=== PATIENT | female | born 1980 | race Caucasian/White ===

== ENCOUNTER 2017-03-17 20:10 | Emergency (ER) | payer BC, OTHER ==
[~2017-03-17] VITALS: Ht 147.3 cm; Wt 77.1 kg
[~2017-03-17 20:10] MED LIST: ALAVERT10 MG PO; ANUSOL-HC30 GM; CLARITIN10 MG PO; IBUPROFEN 600600 M1; NOHOMEMEDICATIONS; NORCO 5-325 TA1 EACH; PREDNISOLONE 5 M5 M1 PO; PREDNISONE 20 M20 M1 PO; PREDNISONE 20 M20 MG PO; PRENATAL PO; ULTRAM 50MG TAB50 MG PO; ZANTAC 150MG T150 M1 PO; ZANTAC 150MG T150 MG PO; ZPAK PO; ZYRTEC10 M2 PO
[2017-03-17 20:17] VITALS: BP 113/87
[2017-03-17] MEDS ORDERED: HYDROXYZINE HCL10 M2 PO (20:56)
== END 2017-03-17 21:04 | disposition home or self-care (01) ==
LOC: ER 20:10
DX: L29.9 Pruritus, unspecified (principal); Z88.6 Allergy status to analgesic agent; Z88.0 Allergy status to penicillin

== ENCOUNTER 2018-05-26 20:30 | Emergency (ER) | payer BC, OTHER ==
[~2018-05-26] VITALS: Ht 142.2 cm; Wt 77.1 kg
[~2018-05-26 20:30] MED LIST changes: +HYDROXYZINE HCL10 M2 PO
[2018-05-26] MEDS ORDERED: VENTOLIN HFA 1818 GM INH ×2 (21:46→21:59)
[2018-05-26] MEDS ORDERED: PREDNISONE 20 M20 MG PO (21:46)
[2018-05-26] MEDS ORDERED: PROMETH-CODEIN 65 ML PO (21:58)
[2018-05-26 22:05] VITALS: BP 110/76
== END 2018-05-26 22:08 | disposition home or self-care (01) ==
LOC: ER 20:30
DX: J20.8 Acute bronchitis due to other specified organisms (principal); B97.89 Other viral agents as the cause of diseases classified elsewhere; Z88.6 Allergy status to analgesic agent; Z88.0 Allergy status to penicillin; Z98.890 Other specified postprocedural states

== ENCOUNTER 2018-10-28 10:54 | Emergency (ER) | payer OTHER ==
[~2018-10-28] VITALS: Ht 160 cm; Wt 72.6 kg
[2018-10-28 10:54] VITALS: BP 112/71
== END 2018-10-28 12:00 | disposition home or self-care (01) ==
LOC: ER 10:54
DX: L50.1 Idiopathic urticaria (principal); Z88.0 Allergy status to penicillin; Z88.6 Allergy status to analgesic agent